=== PATIENT | female | born 1985 | race Caucasian/White ===

== ENCOUNTER 2020-05-04 15:16 | Emergency (ER) | payer MEDICAID, OTHER ==
[~2020-05-04] VITALS: Ht 170.2 cm; Wt 50.0 kg
[2020-05-04 15:46] VITALS: BP 146/97
[2020-05-04] MEDS ORDERED: AMOX-422 PO (17:04)
[2020-05-04] MEDS ORDERED: TETanus/Pertussis (Acell)/Diphther VAC/PF (Tdap-Adult) 0.5ml syringe IMVAC ONE (17:05)
== END 2020-05-04 17:23 | disposition home or self-care (01) ==
LOC: ER 15:17
DX: S43.402A Unspecified sprain of left shoulder joint, initial encounter (principal); S80.812A Abrasion, left lower leg, initial encounter; S80.811A Abrasion, right lower leg, initial encounter; Z86.14 Personal history of Methicillin resistant Staphylococcus aureus infection; Z72.89 Other problems related to lifestyle; Z79.2 Long term (current) use of antibiotics; W54.0XXA Bitten by dog, initial encounter; Y93.89 Activity, other specified; Y92.89 Other specified places as the place of occurrence of the external cause; Y99.8 Other external cause status
CPT/HCPCS: 73030; 90471; 90715; 99283

== ENCOUNTER 2020-10-10 12:00 | Emergency (ER) | payer MEDICAID ==
[~2020-10-10] VITALS: Ht 170.2 cm; Wt 54.5 kg
[~2020-10-10 12:00] MED LIST: LIDOcaine 1% W/epiNEPHrine 1:100,000 20ml vial ONE
[2020-10-10 16:27] LABS: BASOPHILS # (AUTO) 0.1 X10'3 (0-0.2); BASOPHILS % (AUTO) 1.1 % (0-1); EOSINOPHILS # (AUTO) 0.2 X10'3 (0-0.9); EOSINOPHILS % (AUTO) 2.5 % (0-6); HEMATOCRIT 37.2 % (35.0-45.0); HEMOGLOBIN 12.1 g/dl (12.0-16.0); LYMPHOCYTES # (AUTO) 2.4 X10'3 (1.1-4.8); LYMPHOCYTES % (AUTO) 27.8 % (21-51); MEAN CORPUSCULAR HEMOGLOBIN 26.5 PG (27.0-31.0); MEAN CORPUSCULAR HGB CONC 32.4 g/dL (33.0-36.5); MEAN CORPUSCULAR VOLUME 81.7 FL (78-98); MEAN PLATELET VOLUME 7.5 FL (7.4-10.4); MONOCYTES # (AUTO) 0.5 X10'3 (0-0.9); NEUTROPHILS # (AUTO) 5.4 X10'3 (1.8-7.7); NEUTROPHILS % (AUTO) 62.6 % (42-75); PLATELET COUNT 349 X10'3 (140-440); RED BLOOD COUNT 4.56 X10'6 (4.20-5.60); RED CELL DISTRIBUTION WIDTH 15.5 % (11.5-14.5); WHITE BLOOD COUNT 8.7 X10'3 (4.5-11.0)
[2020-10-10] MEDS ORDERED: DOXY100C77 PO (16:28)
[2020-10-10] MEDS ORDERED: CEPH-572 PO (16:28)
[2020-10-10 16:37] LABS: ALANINE AMINOTRANSFERASE 29 U/L (12-78); ALBUMIN 3.2 G/DL (3.4-5.0); ALBUMIN/GLOBULIN RATIO 0.9 (1.1-1.5); ALKALINE PHOSPHATASE 150 IU/L (46-116); ANION GAP 11 (8-16); ASPARTATE AMINO TRANSFERASE 17 U/L (10-37); BILIRUBIN,TOTAL 0.2 MG/DL (0.1-1.0); BLOOD UREA NITROGEN 18 MG/DL (7-18); BUN/CREATININE RATIO 28.1 (6.6-38.0); CALCIUM 8.4 MG/DL (8.5-10.1); CHLORIDE 106 MMOL/L (99-107); CREATININE 0.64 MG/DL (0.40-0.90); GLUCOSE 96 MG/DL (70-104); POTASSIUM 4.3 MMOL/L (3.5-5.1); SODIUM 142 MMOL/L (135-145); TOTAL CARBON DIOXIDE 24.9 MMOL/L (24-32); TOTAL PROTEIN 6.7 G/DL (6.4-8.2); eGFR > 90 ML/MIN
[2020-10-10] MEDS ORDERED: HYDROcodone/acetaminophen 5mg/325mg tablet PO ONE (17:00)
[2020-10-10 17:32] VITALS: BP 126/78
== END 2020-10-10 17:22 | disposition home or self-care (01) ==
LOC: ER 12:01
DX: L02.414 Cutaneous abscess of left upper limb (principal); F17.200 Nicotine dependence, unspecified, uncomplicated; Z86.14 Personal history of Methicillin resistant Staphylococcus aureus infection; Z79.2 Long term (current) use of antibiotics; Z79.899 Other long term (current) drug therapy
CPT/HCPCS: 10060; 36415; 80053; 85025; 99283

== ENCOUNTER 2021-04-16 16:16 | Inpatient (IN) | payer MEDICAID ==
[~2021-04-16] VITALS: Ht 165.1 cm; Wt 60.0 kg
[~2021-04-16 16:16] MED LIST changes: -LIDOcaine 1% W/epiNEPHrine 1:100,000 20ml vial ONE; +dextrose 50%-water 50ml dispensing syringe IV ONE
[2021-04-16] MEDS ORDERED: normal saline 1000ML IV soln IVB ONE (16:20)
[2021-04-16] MEDS ORDERED: dextrose 5%-1/2 normal saline 1,000 ML IV SCH (17:00)
[2021-04-16] MEDS ORDERED: LORazepam 2 mg/ml vial IV ONE (17:20)
[2021-04-16 17:24] LABS: EOSINOPHILS % (AUTO) 0.7 % (0-6); HEMATOCRIT 30.1 % (35.0-45.0); HEMOGLOBIN 9.6 g/dl (12.0-16.0); LYMPHOCYTES # (AUTO) 1.7 X10'3 (1.1-4.8); MEAN CORPUSCULAR HEMOGLOBIN 25.4 PG (27.0-31.0); MEAN CORPUSCULAR VOLUME 79.2 FL (78-98); MONOCYTES # (AUTO) 0.4 X10'3 (0-0.9); NEUTROPHILS % (AUTO) 48.3 % (42-75); PLATELET COUNT 345 X10'3 (140-440); RED CELL DISTRIBUTION WIDTH 15.3 % (11.5-14.5); WHITE BLOOD COUNT 4.2 X10'3 (4.5-11.0)
[2021-04-16 17:36] LABS: ALANINE AMINOTRANSFERASE 8 U/L (12-78); ALBUMIN 2.6 G/DL (3.4-5.0); ALBUMIN/GLOBULIN RATIO 0.9 (1.1-1.5); ALKALINE PHOSPHATASE 98 IU/L (46-116); ANION GAP 11 (8-16); ASPARTATE AMINO TRANSFERASE 13 U/L (10-37); BILIRUBIN,TOTAL 0.2 MG/DL (0.1-1.0); BLOOD UREA NITROGEN 15 MG/DL (7-18); BUN/CREATININE RATIO 22.4 (6.6-38.0); CALCIUM 6.9 MG/DL (8.5-10.1); CHLORIDE 112 MMOL/L (99-107); CREATINE KINASE 71 U/L (26-192); CREATININE 0.67 MG/DL (0.40-0.90); ETHANOL 0.147 GM/DL (0.0-0.010); GLUCOSE 67 MG/DL (70-104); SODIUM 145 MMOL/L (135-145); TOTAL CARBON DIOXIDE 21.6 MMOL/L (24-32); TOTAL PROTEIN 5.4 G/DL (6.4-8.2); eGFR > 90 ML/MIN
[2021-04-16 17:42] LABS: POTASSIUM 2.9 MMOL/L (3.5-5.1)
[2021-04-16] MEDS ORDERED: potassium Cl 20 mEq SR tablet PO STA (17:56)
[2021-04-16] MEDS ORDERED: magnesium 2GM in 50ml NS 50 ML IV ONE (18:00)
[2021-04-16] MEDS ORDERED: thiamine 100mg/ml 2ml inj. IV ONE (18:55)
[2021-04-16] MEDS ORDERED: folic acid 1mg/0.2ml inj IV ONE (18:55)
[2021-04-16] MEDS ORDERED: potassium Cl 10 mEq/100mL bag IV ONE ×2 (19:15)
[2021-04-16] MEDS ORDERED: ondansetron/PF 4mg/2ml inj IV PRN (20:40)
[2021-04-16] MEDS ORDERED: potassium Cl 20 mEq SR tablet PO PRN ×2 (20:40)
[2021-04-16] MEDS ORDERED: potassium Cl 40MEQ/1/2NS 520ml 520 ML IV PRN ×2 (20:40)
[2021-04-16] MEDS ORDERED: acetaminophen 325mg tablet PO PRN (20:40)
[2021-04-16] MEDS ORDERED: magnesium 4gm in 100ml NS 100 ML IV PRN (20:45)
[2021-04-16 20:48] LABS: CLARITY,URINE SLIGHTLY CLOUDY (Clear); COLOR,URINE YELLOW (Yellow); GLUCOSE, URINE 250 mg/dl (Neg); KETONES,URINE NEGATIVE (Neg); LEUKOCYTE ESTERASE ,URINE MODERATE (Neg); NITRITES, URINE POSITIVE (Neg); OCCULT BLOOD,URINE NEGATIVE (Neg); PROTEIN,URINE NEGATIVE (Neg); UROBILINOGEN,URINE 0.2 E.U/dL (0.2-1.0)
[2021-04-16 20:49] LABS: UA COLLECTION TYPE STRAIGHT CATH
[2021-04-16] MEDS ORDERED: calcium chloride 100 MG/1 ML inj IV ONE (20:50)
[2021-04-16 20:54] LABS: BACTERIA,URINE 4+ /HPF (Neg); MUCUS STRANDS FEW /LPF (Neg); RBC,URINE NONE SEEN /HPF (0-2); SQUAMOUS EPITHELIAL CELL,UR FEW /LPF (FEW); WBC CLUMPS,URINE FEW /HPF (NEGATIVE); WBC,URINE 20-30 /HPF (0-4)
[2021-04-16 20:59] LABS: URINE AMPHETAMINE SCREEN POSITIVE (Neg); URINE BARBITUATE SCREEN NEGATIVE (Neg); URINE BENZODIAZEPINES SCREEN NEGATIVE (Neg); URINE CANNABINOID SCREEN NEGATIVE (Neg); URINE COCAINE SCREEN NEGATIVE (Neg); URINE METHADONE SCREEN NEGATIVE (Neg); URINE OPIATE SCREEN NEGATIVE (Neg); URINE PHENCYCLIDINE SCREEN NEGATIVE (Neg)
[2021-04-16] MEDS ORDERED: calcium chloride inj. 1,000 MG in NS 100ml IV soln (110ml) IV ONE (21:00)
[2021-04-16] MEDS ORDERED: LORazepam 2 mg/ml vial IV PRN (21:05)
[2021-04-16] MEDS: potassium Cl 20mEq in NS 1,000 ML IV SCH (21:30)
[2021-04-16] MEDS ORDERED: dextrose 50%-water 50ml dispensing syringe IV ONE (23:43)
[2021-04-17] MEDS ORDERED: NO HOME MEDS (02:13)
--- NOTE | 2021-04-17 06:35 | NUR ---
REPORT ATTEMPTED, RN CURRENTLY UNASSIGNED.
--- NOTE | 2021-04-17 06:45 | NUR ---
RECEIVED REPORT FROM KILEY SANON IN ED AND ASSUMED CARE OF PT.
[2021-04-17 07:00] VITALS: BP 144/82
[2021-04-17] MEDS: heparin, porcine 5000 units/ml vial SQ SCH ×2 (08:00→20:05)
[2021-04-17] MEDS: K and/or MAG REPLACEMENT MC SCH ×2 (08:00→20:00)
[2021-04-17 08:12] LABS: BASOPHILS # (AUTO) 0.1 X10'3 (0-0.2); BASOPHILS % (AUTO) 0.9 % (0-1); EOSINOPHILS # (AUTO) 0.1 X10'3 (0-0.9); EOSINOPHILS % (AUTO) 1.7 % (0-6); HEMATOCRIT 38.3 % (35.0-45.0); HEMOGLOBIN 12.8 g/dl (12.0-16.0); LYMPHOCYTES % (AUTO) 23.8 % (21-51); MEAN CORPUSCULAR HEMOGLOBIN 26.6 PG (27.0-31.0); MEAN CORPUSCULAR HGB CONC 33.3 g/dL (33.0-36.5); MEAN CORPUSCULAR VOLUME 79.8 FL (78-98); MEAN PLATELET VOLUME 7.4 FL (7.4-10.4); MONOCYTES # (AUTO) 0.9 X10'3 (0-0.9); MONOCYTES % (AUTO) 11.2 % (2-12); NEUTROPHILS # (AUTO) 5.2 X10'3 (1.8-7.7); NEUTROPHILS % (AUTO) 62.4 % (42-75); PLATELET COUNT 291 X10'3 (140-440); RED CELL DISTRIBUTION WIDTH 15.4 % (11.5-14.5); WHITE BLOOD COUNT 8.3 X10'3 (4.5-11.0)
[2021-04-17 08:17] LABS: ALANINE AMINOTRANSFERASE 13 U/L (12-78); ALBUMIN/GLOBULIN RATIO 0.8 (1.1-1.5); ALKALINE PHOSPHATASE 120 IU/L (46-116); ANION GAP 13 (8-16); ASPARTATE AMINO TRANSFERASE 20 U/L (10-37); BILIRUBIN,TOTAL 0.3 MG/DL (0.1-1.0); BLOOD UREA NITROGEN 9 MG/DL (7-18); BUN/CREATININE RATIO 17.6 (6.6-38.0); CALCIUM 8.2 MG/DL (8.5-10.1); CHLORIDE 109 MMOL/L (99-107); CREATININE 0.51 MG/DL (0.40-0.90); GLUCOSE 73 MG/DL (70-104); MAGNESIUM 2.3 MG/DL (1.5-2.4); SODIUM 140 MMOL/L (135-145); TOTAL CARBON DIOXIDE 18.2 MMOL/L (24-32); TOTAL PROTEIN 6.9 G/DL (6.4-8.2); eGFR > 90 ML/MIN
[2021-04-17 08:35] LABS: POTASSIUM 4.9 MMOL/L (3.5-5.1)
[2021-04-17 10:00] VITALS: BP 125/69
--- NOTE | 2021-04-17 11:59 | NUR ---
Page Sent PAGER ID: [phone] MESSAGE: SAVANNA [id number] RE: GIORGIO FONSECA [id number] EEG CALLED ASKING IF PT STILL NEEDS EEG THAT WAS ORDERED IN ED? ALSO PT WOKE UP REQUESTING NICOTINE PATCH. CAN I GET AN ORDER FOR ONE? THANK YOU
[2021-04-17] MEDS: nicotine 14mg patch - 24hr TD SCH (12:05)
[2021-04-17] MEDS ORDERED: dextrose 50%-water 50ml dispensing syringe IV PRN (12:35)
[2021-04-17] MEDS ORDERED: MESSAGE TO PHARMACY PO ONE (12:35)
[2021-04-17] MEDS ORDERED: glucagon, human recombinant 1mg kit SUBCUT PRN (12:35)
[2021-04-17] MEDS ORDERED: dextrose ORAL solution 15 GM/59 ML bottle PO PRN ×2 (12:35)
[2021-04-17] MEDS: dextrose 50%-water 50ml dispensing syringe IV PRN ×2 (13:00→17:19)
--- NOTE | 2021-04-17 13:07 | NUR ---
Dr Mariano called and ordered Q 6 BG assessments related to hypoglycemia BS in the ER and to add protocol. Took BG it was 66, gave Pt a push of 25ml of dextrose per protocol.
[2021-04-17] MEDS: potassium Cl 20mEq in NS 1,000 ML IV SCH ×2 (13:24→16:40)
[2021-04-17 13:28] LABS: HEMOGLOBIN A1C 6.2 % (4.5-6.2)
--- NOTE | 2021-04-17 17:14 | NUR ---
Page Sent PAGER ID: [phone] MESSAGE: [phone] DEBBIE Tellez took BG it was 55, pushing dextrose per protocol will continue to monitor. Donovanprolemayelin [id number]
[2021-04-17] MEDS: potassium CL 20mEq in D5-1/2NS 1,000 ML IV SCH (17:53)
--- NOTE | 2021-04-17 18:04 | NUR ---
ORIENTEE documentation: I have reviewed and agree with all interventions, assessments performed and documented by KILEY BALDWIN.
--- NOTE | 2021-04-17 18:18 | NUR ---
Problems reprioritized. Patient report given, questions answered & plan of care reviewed with Vijaya CAO.
[2021-04-17] MEDS: CefTRIAXone/D5W-Rocephin 1gm 50 ML IV SCH (21:29)
[2021-04-17 22:00] VITALS: BP 130/83
[2021-04-18] MEDS: potassium CL 20mEq in D5-1/2NS 1,000 ML IV SCH ×2 (02:49→12:06)
[2021-04-18 06:00] VITALS: BP 120/86
--- NOTE | 2021-04-18 06:03 | NUR ---
Problems reprioritized. Patient report given, questions answered & plan of care reviewed with Chel RN.
--- NOTE | 2021-04-18 06:20 | NUR ---
Patient in room ORTHO 4009A. I have received report from KILEY DUNCAN and had the opportunity to ask questions and assume patient care.
[2021-04-18] MEDS: nicotine 14mg patch - 24hr TD SCH (07:03)
[2021-04-18] MEDS: heparin, porcine 5000 units/ml vial SQ SCH (07:04)
[2021-04-18] MEDS: CefTRIAXone/D5W-Rocephin 1gm 50 ML IV SCH (07:04)
[2021-04-18 07:16] LABS: BASOPHILS % (AUTO) 0.7 % (0-1); EOSINOPHILS # (AUTO) 0.1 X10'3 (0-0.9); EOSINOPHILS % (AUTO) 1.9 % (0-6); HEMATOCRIT 39.9 % (35.0-45.0); LYMPHOCYTES # (AUTO) 1.7 X10'3 (1.1-4.8); LYMPHOCYTES % (AUTO) 24.7 % (21-51); MEAN CORPUSCULAR HEMOGLOBIN 25.6 PG (27.0-31.0); MEAN CORPUSCULAR HGB CONC 32.5 g/dL (33.0-36.5); MEAN CORPUSCULAR VOLUME 78.7 FL (78-98); MEAN PLATELET VOLUME 7.5 FL (7.4-10.4); MONOCYTES # (AUTO) 0.5 X10'3 (0-0.9); MONOCYTES % (AUTO) 7.1 % (2-12); NEUTROPHILS # (AUTO) 4.4 X10'3 (1.8-7.7); NEUTROPHILS % (AUTO) 65.6 % (42-75); PLATELET COUNT 384 X10'3 (140-440); RED BLOOD COUNT 5.07 X10'6 (4.20-5.60); RED CELL DISTRIBUTION WIDTH 15.6 % (11.5-14.5); WHITE BLOOD COUNT 6.7 X10'3 (4.5-11.0)
[2021-04-18 07:50] LABS: ALANINE AMINOTRANSFERASE 13 U/L (12-78); ALBUMIN 2.8 G/DL (3.4-5.0); ALBUMIN/GLOBULIN RATIO 0.8 (1.1-1.5); ALKALINE PHOSPHATASE 109 IU/L (46-116); ANION GAP 11 (8-16); ASPARTATE AMINO TRANSFERASE 13 U/L (10-37); BILIRUBIN,TOTAL 0.2 MG/DL (0.1-1.0); BLOOD UREA NITROGEN 6 MG/DL (7-18); BUN/CREATININE RATIO 8.8 (6.6-38.0); CALCIUM 8.2 MG/DL (8.5-10.1); CHLORIDE 107 MMOL/L (99-107); CREATININE 0.68 MG/DL (0.40-0.90); GLUCOSE 114 MG/DL (70-104); MAGNESIUM 1.9 MG/DL (1.5-2.4); POTASSIUM 4.6 MMOL/L (3.5-5.1); SODIUM 141 MMOL/L (135-145); TOTAL CARBON DIOXIDE 22.6 MMOL/L (24-32); TOTAL PROTEIN 6.5 G/DL (6.4-8.2); eGFR > 90 ML/MIN
[2021-04-18] MEDS: K and/or MAG REPLACEMENT MC SCH (08:00)
--- NOTE | 2021-04-18 09:41 | NUR ---
Page Sent PAGER ID: [phone] MESSAGE: SAVANNA [phone] RE: GIORGIO FONSECA [phone] WOULD YOU LIKE A SITTER ORDERED ON PT PER PROTOCOL? ALSO, CAN WE GET SOMETHING ORDERED FOR HER BACK PAIN? THANKS!
[2021-04-18] MEDS ORDERED: acetaminophen 325mg tablet PO PRN (09:45)
[2021-04-18 10:00] VITALS: BP 119/82
--- NOTE | 2021-04-18 15:01 | NUR ---
Page Sent PAGER ID: [phone] MESSAGE: [id number] taniya Tellez has been cleared by and report is in chart. alicia [id number]
[2021-04-18] MEDS ORDERED: SULF1TAB49 PO (16:33)
--- NOTE | 2021-04-18 17:30 | NUR ---
went over pt discharge with the pt and that we would be organizing her ride with uber to the [facility] [employer] [facility] for discharge. Uber request was sent by Kala.
--- NOTE | 2021-04-18 17:56 | NUR ---
ORIENTEE documentation: I have reviewed and agree with all interventions, assessments performed and documented by KILEY BALDWIN.
--- NOTE | 2021-04-18 18:00 | NUR ---
Patient in room ORTHO 4009. I have received report from KILEY Barreto and had the opportunity to ask questions and assume patient care.
--- NOTE | 2021-04-18 18:03 | NUR ---
Pt Left AC IV was taken out and canula is intact.
--- NOTE | 2021-04-18 18:13 | NUR ---
Problems reprioritized. Patient report given, questions answered & plan of care reviewed with KILEY FLORES.
--- NOTE | 2021-04-18 19:30 | NUR ---
Pt picked up by cab from [place]. Pt self ambulates without DME, gait steady. Took all personal belongings with her
[2021-04-18] MEDS ORDERED: lactobacillus rhamnosus 10,000 MMU CELLS/CAPSULE PO SCH (20:00)
== END 2021-04-18 19:35 | disposition home or self-care (01) | DRG 812 ==
LOC: ER 16:16 → ED HOLD 20:39 → ORTHO 4S 04-17 07:40
PROVIDERS: ADMIT Internal Medicine; ATTEND Internal Medicine
DX: T45.0X1A Poisoning by antiallergic and antiemetic drugs, accidental (unintentional), initial encounter (principal); G92 Toxic encephalopathy; E83.51 Hypocalcemia; N30.01 Acute cystitis with hematuria; R56.9 Unspecified convulsions; E86.0 Dehydration; E87.6 Hypokalemia; T39.1X1A Poisoning by 4-Aminophenol derivatives, accidental (unintentional), initial encounter; F10.229 Alcohol dependence with intoxication, unspecified; E16.2 Hypoglycemia, unspecified; B96.89 Other specified bacterial agents as the cause of diseases classified elsewhere; F15.10 Other stimulant abuse, uncomplicated; T67.1XXA Heat syncope, initial encounter; X30.XXXA Exposure to excessive natural heat, initial encounter; Z59.0 Homelessness; Y92.89 Other specified places as the place of occurrence of the external cause
CPT/HCPCS: 36415; 70450; 71045; 80053; 80305; 80320; 81001; 82550; 82948; 83036; 83605; 83735; 85025; 87077; 87081; 87088; 87186; 93005; 96365; 96366; 96368; 96375; 99291; G0378; J0696; J1644; J2060; J3411; J3475; J3480; J3490; J7030